=== PATIENT | male | born 1985 | race Caucasian/White ===

== ENCOUNTER 2018-10-09 19:49 | Emergency (ER) | payer SELFPAY ==
[2018-10-09] MEDS ORDERED: CEPHALEXIN 500 MG CAPSULE PO ONE (21:47)
[2018-10-09] MEDS ORDERED: SULFAMETHOXAZOLE/TRIMETHOPRIM 800-160 MG TABLET PO ONE (21:47)
--- NOTE | 2018-10-09 21:52 | ER Document Report ---
ED General - General Chief Complaint: Arm Pain Stated Complaint: ARM PAIN Time Seen by Provider: 10/09/18 20:06 Notes: Patient is a 33-year-old male with a past medical history of IV opiate abuse, no other chronic medical problems presents with 3 days of a area of swelling and redness over his left forearm. This is a site where the patient had injected 24 hours prior to the onset of the area becoming red and inflamed. Patient notes a throbbing, aching, constant pain to the area. Nothing seems to improve or worsen the pain. Patient states that he did try to cut the area with a razor blade to "relieve pressure" but only serous fluid was relieved. He was encouraged to come to the hospital tonight by his mother as the area was not improving. He denies fever or constitutional symptoms. He denies any history of similar symptoms in the past. Does not have a primary care physician. Last use of IV opiates was within the past 24 hours. TRAVEL OUTSIDE OF THE [place] IN LAST 30 DAYS: No - Related Data Allergies/Adverse Reactions: No Known Allergies Allergy (Unverified 10/09/18 19:51) Past Medical History - General Information source: Patient - Social History Smoking Status: Current Every Day Smoker Frequency of alcohol use: Occasional Drug Abuse: Heroin Lives with: Family Family History: Reviewed & Not Pertinent Review of Systems - Review of Systems Notes: Constitutional: Negative for fever. HENT: Negative for sore throat. Eyes: Negative for visual changes. Cardiovascular: Negative for chest pain. Respiratory: Negative for shortness of breath. Gastrointestinal: Negative for abdominal pain, vomiting or diarrhea. Genitourinary: Negative for dysuria. Musculoskeletal: Negative for back pain. Skin: Positive for rash. Neurological: Negative for headaches, weakness or numbness. 10 point ROS negative except as marked above and in HPI. Physical Exam - Vital signs Vitals: Temp Pulse Resp BP Pulse Ox 98.1 F 80 18 136/68 H 100 10/09/18 20:01 10/09/18 20:01 10/09/18 20:01 10/09/18 20:01 10/09/18 20:01 Interpretation: Normal Notes: PHYSICAL EXAMINATION: GENERAL: Well-appearing, well-nourished and in no acute distress. HEAD: Atraumatic, normocephalic. EYES: Pupils equal round and reactive to light, extraocular movements intact, sclera anicteric, conjunctiva are normal. ENT: nares patent, oropharynx clear without exudates. Moist mucous membranes. NECK: Normal range of motion, supple without lymphadenopathy LUNGS: Breath sounds clear to auscultation bilaterally and equal. No wheezes rales or rhonchi. HEART: Regular rate and rhythm without murmurs ABDOMEN: Soft, nontender, normoactive bowel sounds. No guarding, no rebound. No masses appreciated. EXTREMITIES: Normal range of motion, no pitting or edema. No cyanosis. NEUROLOGICAL: No focal neurological deficits. Moves all extremities spontaneously and on command. PSYCH: Normal mood, normal affect. SKIN: Warm, Dry, normal turgor, there is a noted area of swelling, mild induration although no fluctuance as well as erythema over the left forearm. Bedside ultrasound without evidence of fluid collection, cobblestoning noted. Course - Re-evaluation Re-evalutation: 10/09/18 21:52 Patient presents with symptoms most consistent with an acute cellulitis. Bedside ultrasound without any evidence of a deep space infection. Vitals within normal limits. Patient does not meet sepsis criteria is overall very well in appearance. Exam and history are not consistent with DVT. Patient will be started on coverage for both staph and strep. Patient is an IV drug user, we did have an extensive conversation regarding medical assisted therapy such as Suboxone. Patient declines initiation of this at this time stating he is not yet ready to quit. We did review safe needle practices and I did provide resources for outpatient therapy. At this time will discharge with return precautions and follow-up recommendations. Verbal discharge instructions given a the bedside and opportunity for questions given. Medication warnings reviewed. Patient is in agreement with this plan and has verbalized understanding of return precautions and the need for primary care follow-up in the next 24-72 hours. - Vital Signs Vital signs: Temp Pulse Resp BP Pulse Ox 97.5 F 82 18 131/72 H 100 10/09/18 21:58 10/09/18 21:58 10/09/18 21:58 10/09/18 21:58 10/09/18 21:58 Discharge - Discharge Clinical Impression: Staph skin infection, IV drug abuse Condition: Good Disposition: HOME, SELF-CARE Additional Instructions: The rash is likely due to infection of your skin. You need to take the antibiotics as prescribed. Do not stop even if the rash goes away until you have completed all the antibiotics. You should also return if you develop fevers with temperature greater than 101, worsening of the rash, persistent vomiting, worsening pain, or have any other symptoms that are concerning to you. I appreciate you giving me an opportunity to talk to today about opiate use. Please never use opiates of any kind. Over 200 people every day in the [place] from opiate overdoses. Do not become a statistic. You should urgently seek rehab and medical opiate therapy such as Suboxone. You can call 6-365-385-GGBG to find local resources. There is also resource sheet attached your paperwork today. Prescriptions: Cephalexin Monohydrate [Keflex 500 mg Capsule] 500 mg PO Q6H 7 Days capsule Sulfamethoxazole/Trimethoprim [Bactrim Ds Tablet] 1 tab PO BID #14 tablet
[2018-10-09 22:10] VITALS: BP 131/72
== END 2018-10-09 22:04 | disposition home or self-care (01) ==
LOC: ER 19:49
DX: L08.9 Local infection of the skin and subcutaneous tissue, unspecified (principal); B95.8 Unspecified staphylococcus as the cause of diseases classified elsewhere; F11.10 Opioid abuse, uncomplicated; F17.200 Nicotine dependence, unspecified, uncomplicated
CPT/HCPCS: 99283

== ENCOUNTER 2019-02-12 18:53 | Emergency (ER) | payer SELFPAY ==
[2019-02-12 18:58] VITALS: BP 134/63
[2019-02-12] MEDS ORDERED: MUPIROCIN 2% OINTMENT 22 GM TP ONE (19:25)
[2019-02-12] MEDS ORDERED: CEPHALEXIN 500 MG CAPSULE PO ONE (19:25)
[2019-02-12] MEDS ORDERED: SULFAMETHOXAZOLE/TRIMETHOPRIM 800-160 MG TABLET PO ONE (19:25)
--- NOTE | 2019-02-12 19:30 | ER Document Report ---
HPI - HPI Patient complains to provider of: Skin infection Time Seen by Provider: 02/12/19 19:05 Onset: Other - 3 days Onset/Duration: Persistent Quality of pain: Achy Pain Level: 2 Context: Patient states that he had a pimple to the right lower jawline area and squeezed it. Patient states that area larger and he has continued to squeeze stuff out today. No fever. Associated Symptoms: denies: Fever Exacerbated by: Denies Relieved by: Denies Similar symptoms previously: Yes Recently seen / treated by doctor: No - ROS ROS below otherwise negative: Yes Systems Reviewed and Negative: Yes All other systems reviewed and negative - CONSTITUTIONAL Constitutional: DENIES: Fever - GASTROINTESTINAL Gastrointestinal: DENIES: Nausea - MUSCULOSKELETAL Musculoskeletal: DENIES: Neck Pain - DERM Skin Color: Erythema Notes: Abscess to jawline Past Medical History - General Information source: Patient - Social History Smoking Status: Current Every Day Smoker Smoking Education Provided: Yes Frequency of alcohol use: None Drug Abuse: None Occupation: None Lives with: Family Family History: Reviewed & Not Pertinent Patient has suicidal ideation: No Patient has homicidal ideation: No - Medical History Medical History: Negative Renal/ Medical History: Denies: Hx Peritoneal Dialysis Surgical Hx: Negative Vertical Provider Document - CONSTITUTIONAL Agree With Documented VS: Yes Exam Limitations: No Limitations General Appearance: WD/WN, No Apparent Distress - INFECTION CONTROL TRAVEL OUTSIDE OF THE [place] IN LAST 30 DAYS: No - HEENT HEENT: Atraumatic, Normocephalic Notes: Patient with abscess within vincent along right lateral jawline. Patient with central scabbed lesion and surrounding induration, no fluctuance. Patient with surrounding erythema worrisome for cellulitis. No sublingual or submental swelling - NECK Neck: Normal Inspection, Supple. negative: Lymphadenopathy-Left, Lymphadenopathy-Right - RESPIRATORY Respiratory: Breath Sounds Normal, No Respiratory Distress - CARDIOVASCULAR Cardiovascular: Regular Rate, Regular Rhythm - MUSCULOSKELETAL/EXTREMETIES Musculoskeletal/Extremeties: MAEW - NEURO Level of Consciousness: Awake, Alert, Appropriate - DERM Integumentary: Warm, Dry, Abscess - Tender indurated area to right submandibular area with surrounding erythema, no fluctuance Course - Re-evaluation Re-evalutation: 02/12/19 19:[address] Knutson regarding patient presentation and exam findings. Agrees with plan to treat and have patient return tomorrow for wound recheck. 02/12/19 19:26 Discussed plan of care with patient as he does not have any area of fluctuance at this time. Patient denies any difficulty breathing or swallowing. Patient without any sublingual or submental swelling. No concern for Miguel angina at this time. No potential airway compromise. Patient reports squeezing purulent drainage out of wound earlier today. No additional collection of purulent drainage suspected at this time. Will treat symptomatically and encourage return visit tomorrow for recheck. Discussed worsening symptoms that patient should return immediately for including difficulty breathing, difficulty swallowing, swelling under his tongue or under his chin. - Vital Signs Vital signs: Temp Pulse Resp BP Pulse Ox 97.8 F 89 18 134/63 H 99 02/12/19 18:56 02/12/19 18:56 02/12/19 18:56 02/12/19 18:56 02/12/19 18:56 Discharge - Discharge Clinical Impression: Facial abscess Cellulitis Qualifiers: Site of cellulitis: face Qualified Code(s): L03.211 - Cellulitis of face Condition: Stable Disposition: HOME, SELF-CARE Instructions: Abscess ([facility]), Bactroban Ointment ([facility]), Cephalexin ([facility]), Trimethoprim-Sulfa ([facility]) Additional Instructions: Return immediately for any new or worsening symptoms Return tomorrow for repeat examination. Followup with your primary care provider, call tomorrow to make a followup appointment Do not pick at or squeeze at skin lesion on your face Apply warm compresses frequently to the area Apply Bactroban ointment 3 times a day for the next week. Prescriptions: Cephalexin Monohydrate [Keflex 500 mg Capsule] 500 mg PO Q6H 7 Days capsule Sulfamethoxazole/Trimethoprim [Bactrim Ds Tablet] 1 each PO BID #20 tablet Forms: Smoking Cessation Education Referrals: [facility] [Provider Group] - Follow up as needed
== END 2019-02-12 19:37 | disposition home or self-care (01) ==
LOC: ER 18:53
DX: L02.01 Cutaneous abscess of face (principal); L03.211 Cellulitis of face; F17.200 Nicotine dependence, unspecified, uncomplicated
CPT/HCPCS: 99283; J3490

== ENCOUNTER 2019-02-13 19:42 | Emergency (ER) | payer SELFPAY ==
--- NOTE | 2019-02-13 20:39 | ER Document Report ---
ED Medical Screen (RME) - General Chief Complaint: Abscess Recheck Stated Complaint: ABCESS Time Seen by Provider: 02/13/19 20:29 Mode of Arrival: Ambulatory Information source: Patient Notes: Patient presents to the emergency department for recheck of an abscess on the right side of his chin. Reports he was seen here last night prescribed antibiotics. He reports he is taken 1 dose. Reports the area is larger and creeping to the other side. No other complaints such as fever vomiting diarrhea. Reports he has had abscess one time before. Patient is talking in a clear voice opens his mouth wide no trismus I have greeted and performed a rapid initial assessment of this patient. A comprehensive ED assessment and evaluation of the patient, analysis of test results and completion of the medical decision making process will be conducted by additional ED providers. Dictation of this chart was performed using voice recognition software; therefore, there may be some unintended grammatical errors. TRAVEL OUTSIDE OF THE [place] IN LAST 30 DAYS: No - Related Data Allergies/Adverse Reactions: No Known Allergies Allergy (Verified 02/12/19 18:53) Past Medical History Renal/ Medical History: Denies: Hx Peritoneal Dialysis Physical Exam - Vital signs Vitals: Temp Pulse Resp BP Pulse Ox 98.8 F 89 16 142/69 H 99 02/13/19 19:50 02/13/19 19:50 02/13/19 19:50 02/13/19 19:50 02/13/19 19:50 Course - Vital Signs Vital signs: Temp Pulse Resp BP Pulse Ox 98.8 F 89 16 142/69 H 99 02/13/19 19:50 02/13/19 19:50 02/13/19 19:50 02/13/19 19:50 02/13/19 19:50
[2019-02-13 21:07] LABS: ABSOLUTE EOSINOPHILS # (AUTO) 0.3 10^3/uL (0.0-0.6); ABSOLUTE MONOCYTES (AUTO) 0.9 10^3/uL (0.1-1.4); ABSOLUTE NEUT (AUTO) 11.1 10^3/uL (1.7-8.2); BASOPHILS % (AUTO) 0.3 % (0-2); EOSINOPHILS % (AUTO) 1.8 % (0-6); HEMATOCRIT 35.9 % (37.9-51.0); LYMPHOCYTES % (AUTO) 13.9 % (13-45); MEAN CORPUSCULAR HEMOGLOBIN 28.5 pg (27.0-33.4); MEAN CORPUSCULAR HGB CONC 33.5 g/dL (32.0-36.0); MEAN CORPUSCULAR VOLUME 85 fl (80-97); MONOCYTES % (AUTO) 6.4 % (3-13); PLATELET COUNT 355 10^3/uL (150-450); RED BLOOD COUNT 4.23 10^6/uL (4.35-5.55); SEGMENTED NEUTROPHILS % (AUTO) 77.6 % (42-78); TOTAL CELLS COUNTED % (AUTO) 100 %; WHITE BLOOD COUNT 14.3 10^3/uL (4.0-10.5)
[2019-02-13 21:22] LABS: ALANINE AMINOTRANSFERASE 25 U/L (21-72); ALBUMIN 4.2 g/dL (3.5-5.0); ALKALINE PHOSPHATASE 98 U/L (38-126); ANION GAP 9 (5-19); ASPARTATE AMINO TRANSFERASE 29 U/L (17-59); BILIRUBIN,DIRECT 0.3 mg/dL (0.0-0.4); BILIRUBIN,TOTAL 0.5 mg/dL (0.2-1.3); BLOOD UREA NITROGEN 10 mg/dL (7-20); CALCIUM 9.3 mg/dL (8.4-10.2); CARBON DIOXIDE 31 mmol/L (22-30); CHLORIDE 99 mmol/L (98-107); GLUCOSE 100 mg/dL (75-110); POTASSIUM 4.1 mmol/L (3.6-5.0); SODIUM 138.6 mmol/L (137-145); TOTAL PROTEIN 7.8 g/dL (6.3-8.2)
[2019-02-13] MEDS ORDERED: NORMAL SALINE 1000 ML 1,000 ML IV ONE (21:50)
[2019-02-13 22:08] LABS: INTERNATIONAL RATION (INR) 0.96; PROTHROMBIN TIME 12.8 SEC (11.4-15.4)
[2019-02-13 22:09] LABS: PARTIAL THROMBOPLASTIN TIME 30.3 SEC (23.5-35.8)
--- NOTE | 2019-02-13 22:29 | RADIOLOGY REPORT (SQ) ---
EXAM DESCRIPTION: [facility]Lex: CT NECK CHEST WITH IV CONTRAST CLINICAL HISTORY: 33 years Male; abscess TECHNIQUE: CT soft tissue neck protocol with contrast All CT scans at this facility use dose modulation, iterative reconstruction, and/or weight based dosing when appropriate to reduce radiation dose to as low as reasonably achievable. COMPARISON: None. FINDINGS: There is diffuse subcutaneous edema in the right face, lateral abdomen inferior to the mandible. There is associated thickening of the platysma. Multiple enlarged level 1 lymph nodes measure up to 1.7 cm in diameter. No [place] necrosis. No focal fluid collection. Salivary glands are normal. Epiglottis is normal. Larynx is normal. No acute dental pathology. No acute bone findings. There is a slight levocurvature in the upper thoracic spine, which may be positional. No lytic bone changes. Paranasal sinuses and mastoid air cells are clear. IMPRESSION: 1. Right facial cellulitis with reactive submandibular adenopathy. 2. No abscess. 3. No focal lesions to explain the cellulitis.
[2019-02-13] MEDS ORDERED: VANCOMYCIN HCL INJ 1000 MG VIAL IV ONE (22:59)
[2019-02-13] MEDS ORDERED: PIPERACILLIN/TAZOBACTAM 3.375 GM VIAL IV ONE (22:59)
--- NOTE | 2019-02-13 23:04 | ER Document Report ---
ED General - General Chief Complaint: Abscess Recheck Stated Complaint: ABCESS Time Seen by Provider: 02/13/19 20:29 Primary Care Provider: WILMA BOOTH MD [ACTIVE STAFF] - Follow up as needed NAVI CHILEL MD [ACTIVE STAFF] - Follow up as needed Mode of Arrival: Ambulatory Information source: Patient TRAVEL OUTSIDE OF THE [place] IN LAST 30 DAYS: No - HPI Onset: Yesterday Onset/Duration: Sudden Quality of pain: Dull Severity: Mild Pain Level: 1 Associated symptoms: None Exacerbated by: Denies Relieved by: Denies Similar symptoms previously: No Recently seen / treated by doctor: No - Related Data Allergies/Adverse Reactions: No Known Allergies Allergy (Verified 02/12/19 18:53) Past Medical History - General Information source: Patient - Social History Smoking Status: Current Some Day Smoker Frequency of alcohol use: None Drug Abuse: Heroin Family History: Reviewed & Not Pertinent Patient has suicidal ideation: No Patient has homicidal ideation: No Renal/ Medical History: Denies: Hx Peritoneal Dialysis Review of Systems - Review of Systems Constitutional: No symptoms reported EENT: Other - Right facial swelling below the right mandible. Cardiovascular: No symptoms reported Respiratory: No symptoms reported Gastrointestinal: No symptoms reported Genitourinary: No symptoms reported Male Genitourinary: No symptoms reported Musculoskeletal: No symptoms reported Skin: No symptoms reported Hematologic/Lymphatic: No symptoms reported Neurological/Psychological: No symptoms reported -: Yes All other systems reviewed and negative Physical Exam - Vital signs Vitals: Temp Pulse Resp BP Pulse Ox 98.8 F 89 16 142/69 H 99 02/13/19 19:50 02/13/19 19:50 02/13/19 19:50 02/13/19 19:50 02/13/19 19:50 Interpretation: Normal - General General appearance: Appears well, Alert - HEENT Head: Normocephalic, Atraumatic Eyes: Normal Pupils: PERRL Notes: There is induration and redness with swelling below the right mandible consistent with cellulitis. There is no fluctuance to suggest an abscess. - Respiratory Respiratory status: No respiratory distress Chest status: Nontender Breath sounds: Normal Chest palpation: Normal - Cardiovascular Rhythm: Regular Heart sounds: Normal auscultation Murmur: No - Abdominal Inspection: Normal Distension: No distension Bowel sounds: Normal Tenderness: Nontender Organomegaly: No organomegaly - Back Back: Normal, Nontender - Extremities General upper extremity: Normal inspection, Nontender, Normal color, Normal ROM, Normal temperature General lower extremity: Normal inspection, Nontender, Normal color, Normal ROM, Normal temperature, Normal weight bearing. No: Roberta's sign - Neurological Neuro grossly intact: Yes Cognition: Normal Orientation: AAOx4 [place] Coma Scale Eye Opening: Spontaneous [place] Coma Scale Verbal: Oriented [place] Coma Scale Motor: Obeys Commands [place] Coma Scale Total: 15 Speech: Normal Motor strength normal: LUE, RUE, LLE, RLE Sensory: Normal - Psychological Associated symptoms: Normal affect, Normal mood - Skin Skin Temperature: Warm Skin Moisture: Dry Skin Color: Normal Course - Vital Signs Vital signs: Temp Pulse Resp BP Pulse Ox 98.4 F 73 20 136/83 H 100 02/14/19 01:46 02/14/19 01:46 02/14/19 01:46 02/14/19 01:46 02/14/19 01:46 - Laboratory Result Diagrams: 02/13/19 20:48 02/13/19 20:48 Laboratory results interpreted by me: 02/13/19 02/13/19 20:48 20:48 WBC 14.3 H RBC 4.23 L Hgb 12.0 L Hct 35.9 L Absolute Neutrophils 11.1 H Carbon Dioxide 31 H - Diagnostic Test Radiology reviewed: Reports reviewed Discharge - Discharge Clinical Impression: Facial cellulitis Condition: Stable Disposition: HOME, SELF-CARE Instructions: MRSA Cellulitis ([facility]) Additional Instructions: Please follow-up with your doctor on Thursday morning. Take your antibiotics as prescribed. Return to the emergency room if your condition worsens. Prescriptions: Clindamycin HCl [Cleocin 300 mg Capsule] 300 mg PO TID #30 capsule Ibuprofen [Motrin 600 mg Tablet] 600 mg PO Q8H PRN #20 tablet PRN Reason: Pain Scale Of 3 Ondansetron [Zofran Odt 4 mg Tablet] 1 tab PO Q4H PRN #15 tab.rapdis PRN Reason: For Nausea/Vomiting Referrals: NAVI CHILEL MD [ACTIVE STAFF] - Follow up as needed WILMA BOOTH MD [ACTIVE STAFF] - Follow up as needed
[2019-02-14 01:47] VITALS: BP 136/83
== END 2019-02-14 01:47 | disposition home or self-care (01) ==
LOC: ER 19:42
DX: L03.211 Cellulitis of face (principal); F11.10 Opioid abuse, uncomplicated; F17.200 Nicotine dependence, unspecified, uncomplicated
CPT/HCPCS: 36415; 85025; 85610; 85730; 80053; 70491; J7030; J3370; J2543

== ENCOUNTER 2019-02-27 16:50 | Emergency (ER) | payer SELFPAY ==
[2019-02-27] MEDS ORDERED: NORMAL SALINE 1000 ML 1,000 ML IV ONE (18:06)
[2019-02-27 18:19] LABS: ALANINE AMINOTRANSFERASE 23 U/L (21-72); ALKALINE PHOSPHATASE 147 U/L (38-126); ANION GAP 9 (5-19); ASPARTATE AMINO TRANSFERASE 22 U/L (17-59); BILIRUBIN,DIRECT 0.3 mg/dL (0.0-0.4); BILIRUBIN,TOTAL 0.6 mg/dL (0.2-1.3); BLOOD UREA NITROGEN 15 mg/dL (7-20); CALCIUM 8.2 mg/dL (8.4-10.2); CARBON DIOXIDE 25 mmol/L (22-30); CHLORIDE 98 mmol/L (98-107); CREATINE KINASE 52 U/L (55-170); GLUCOSE 84 mg/dL (75-110); POTASSIUM 3.4 mmol/L (3.6-5.0); SODIUM 131.7 mmol/L (137-145); TOTAL PROTEIN 5.6 g/dL (6.3-8.2)
[2019-02-27 18:31] LABS: CREATINE KINASE MB 0.62 ng/mL (<4.55); HEMATOCRIT 30.4 % (37.9-51.0); HEMOGLOBIN 10.3 g/dL (13.5-17.0); MEAN CORPUSCULAR HEMOGLOBIN 28.4 pg (27.0-33.4); MEAN CORPUSCULAR VOLUME 84 fl (80-97); PLATELET COUNT 234 10^3/uL (150-450); RED BLOOD COUNT 3.63 10^6/uL (4.35-5.55); RED CELL DISTRIBUTION WIDTH 13.7 % (11.5-14.0); WHITE BLOOD COUNT 11.5 10^3/uL (4.0-10.5)
[2019-02-27 18:32] LABS: TROPONIN I < 0.012 ng/mL
[2019-02-27 18:58] LABS: BASOPHILS % (MANUAL) 0 % (0-2); EOSINOPHILS % (MANUAL) 0 % (0-6); LYMPHOCYTES % (MANUAL) 9 % (13-45); MONOCYTES % (MANUAL) 0 % (3-13); PLATELET COMMENT ADEQUATE; RBC MORPHOLOGY COMMENT NORMO-CYTIC/CHROMIC; SEGMENTED NEUTROPHILS % (MAN) 91 % (42-78); TOTAL CELLS COUNTED 100
[2019-02-27 19:09] LABS: APPEARANCE,URINE CLEAR; BILIRUBIN,URINE NEGATIVE (NEGATIVE); COLOR,URINE YELLOW; GLUCOSE, URINE NEGATIVE (NEGATIVE); KETONES,URINE NEGATIVE (NEGATIVE); LEUKOCYTE ESTERASE,URINE NEGATIVE (NEGATIVE); NITRITE,URINE NEGATIVE (NEGATIVE); PROTEIN,URINE NEGATIVE (NEGATIVE); URINE SPECIFIC GRAVITY 1.006
[2019-02-27 19:26] VITALS: BP 104/45
--- NOTE | 2019-02-27 20:00 | RADIOLOGY REPORT (SQ) ---
EXAM DESCRIPTION: MRI LUMBAR SPINE WITHOUT; MRI THORACIC SPINE WITHOUT; MRI CERVICAL SPINE WITHOUT COMPLETED DATE/TIME: 02/27/2019 7:27 pm; 02/27/2019 7:51 pm; 02/27/2019 7:50 pm REASON FOR STUDY: right leg weakness, IVDA; RT LEG WEAKNESS IVDA; RTLEG WEAKNESS IVDA COMPARISON: CT cervical spine, 02/13/2019 TECHNIQUE: Multisequence multiplanar imaging of the cervical, thoracic, and lumbar spine was perform ed, including sagittal total spine STIR imaging at the request of the ordering physician. LIMITATIONS: None. FINDINGS: SEGMENTATION: No transitional anatomy. The lowest well-developed disc space is labeled L5- S1. ALIGNMENT: Anatomic. VERTEBRAE: Intact. BONE MARROW: Normal. No marrow replacement or reactive changes. DISC SIGNAL: Focal disc degenerative disease and small posterior cervical disc bulge at C6-C7 with re versal of the normal cervical lordosis, seen in sagittal STIR only. Disc spaces are otherwise normal without evidence of significant disc degenerative disease, disc edema, or abnormality. POSTERIOR ELEMENTS: Generally intact. No pars defect evident. HARDWARE: None in the spine. CORD AND CONUS: Normal in size and signal intensity. Conus at the appropriate level. SOFT TISSUES: No significant abnormality. OTHER: No other significant findings. IMPRESSION: 1. No noncontrast MR abnormality of the lumbar spine. No significant disc or neural fo raminal pathology. No evidence of epidural abscess or other abnormality. No evidence of discitis os teomyelitis. 2. Focal disc degenerative disease and small posterior cervical disc bulge at at C6-C7 with reversal of the normal cervical lordosis, seen in sagittal STIR imaging only, findings as seen on prior CT [place] 02/13/2019. 3. No evidence of discitis osteomyelitis or epidural abscess of the cervical or thoracic spine, imag ed in sagittal STIR only. TECHNICAL DOCUMENTATION: JOB ID: [id number] [employer]- All Rights Reserved Reading location - IP/workstation name: [email or web address]
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
== END 2019-02-27 21:41 | disposition home or self-care (01) ==
LOC: ER 16:50
DX: R53.1 Weakness (principal); R61 Generalized hyperhidrosis; R20.2 Paresthesia of skin; F11.20 Opioid dependence, uncomplicated; F14.10 Cocaine abuse, uncomplicated; F15.10 Other stimulant abuse, uncomplicated; F17.210 Nicotine dependence, cigarettes, uncomplicated; R68.83 Chills (without fever); M50.323 Other cervical disc degeneration at C6-C7 level; M50.823 Other cervical disc disorders at C6-C7 level; D72.829 Elevated white blood cell count, unspecified; D64.9 Anemia, unspecified
CPT/HCPCS: 99284; 36415; 87040; 82553; 82550; 85025; 87077; 80053; 81001; 84484; 83605; 72141; 72146; 72148; J7030; 87186

== ENCOUNTER 2019-03-04 11:49 | Emergency (ER) | payer SELFPAY ==
--- NOTE | 2019-03-04 12:29 | ER Document Report ---
ED Medical Screen (RME) - General Chief Complaint: Abnormal Lab Results Stated Complaint: RESULTS Time Seen by Provider: 03/04/19 12:20 Notes: Patient is a [age]-year-old male presents to the emergency department for positive blood cultures. Patient states the hospital called him and told him he needs to come back to the emergency department for reevaluation. Patient was at the facility at 02/27/2019. Was having numbness in his right lower extremity. Patient does admit to past IV drug abuse. Blood cultures did grow back called Klebsiella, susceptible to ciprofloxacin. Discussed this case with my attending Dr. Jones who suggests initial dose of ciprofloxacin in the emergency department with repeat blood cultures. Patient states last evening he had a fever 101.6. Patient's denying any other complaints. States he has no further numbness or tingling in his right lower extremity. GENERAL: Alert, interacts well. No acute distress. EXTREMITIES: Moves all 4 extremities spontaneously. No edema, normal radial and dorsalis pedis pulses bilaterally. No cyanosis. I have greeted and performed a rapid initial assessment of this patient. A comprehensive ED assessment and evaluation of the patient, analysis of test results and completion of the medical decision making process will be conducted by additional ED providers. I have specifically instructed the patient or family members with the patient to immediately return to any nursing staff should anything change in the patient's condition or with their chief complaint. This medical record was dictated with voice recognizing software. There may be grammatical, syntax errors that are unintended. TRAVEL OUTSIDE OF THE [place] IN LAST 30 DAYS: No - Related Data Allergies/Adverse Reactions: No Known Allergies Allergy (Verified 02/12/19 18:53) Past Medical History Renal/ Medical History: Denies: Hx Peritoneal Dialysis Physical Exam - Vital signs Vitals: Temp Pulse Resp BP Pulse Ox 97.8 F 96 14 131/60 H 100 03/04/19 12:21 03/04/19 12:21 03/04/19 12:21 03/04/19 12:21 03/04/19 12:21 Course - Vital Signs Vital signs: Temp Pulse Resp BP Pulse Ox 97.8 F 96 14 131/60 H 100 03/04/19 12:21 03/04/19 12:21 03/04/19 12:21 03/04/19 12:21 03/04/19 12:21
[2019-03-04] MEDS ORDERED: CIPROFLOXACIN 400 MG/D5W RTU 400 MG/200 ML RTUPB IV SCH (12:30)
[2019-03-04 13:23] LABS: ABSOLUTE EOSINOPHILS # (AUTO) 0.2 10^3/uL (0.0-0.6); ABSOLUTE LYMPHOCYTES (AUTO) 1.8 10^3/uL (0.5-4.7); ABSOLUTE MONOCYTES (AUTO) 0.6 10^3/uL (0.1-1.4); BASOPHILS % (AUTO) 0.5 % (0-2); EOSINOPHILS % (AUTO) 2.7 % (0-6); HEMATOCRIT 38.5 % (37.9-51.0); HEMOGLOBIN 13.1 g/dL (13.5-17.0); LYMPHOCYTES % (AUTO) 24.1 % (13-45); MEAN CORPUSCULAR HEMOGLOBIN 29.2 pg (27.0-33.4); MEAN CORPUSCULAR HGB CONC 34.1 g/dL (32.0-36.0); MEAN CORPUSCULAR VOLUME 86 fl (80-97); MONOCYTES % (AUTO) 7.4 % (3-13); PLATELET COUNT 327 10^3/uL (150-450); RED CELL DISTRIBUTION WIDTH 14.5 % (11.5-14.0); SEGMENTED NEUTROPHILS % (AUTO) 65.3 % (42-78); TOTAL CELLS COUNTED % (AUTO) 100 %; WHITE BLOOD COUNT 7.6 10^3/uL (4.0-10.5)
[2019-03-04 13:40] LABS: ALANINE AMINOTRANSFERASE 17 U/L (21-72); ALBUMIN 4.1 g/dL (3.5-5.0); ALKALINE PHOSPHATASE 86 U/L (38-126); ANION GAP 9 (5-19); ASPARTATE AMINO TRANSFERASE 22 U/L (17-59); BILIRUBIN,DIRECT 0.3 mg/dL (0.0-0.4); BILIRUBIN,TOTAL 0.4 mg/dL (0.2-1.3); BLOOD UREA NITROGEN 12 mg/dL (7-20); CALCIUM 9.1 mg/dL (8.4-10.2); CARBON DIOXIDE 31 mmol/L (22-30); CHLORIDE 101 mmol/L (98-107); GLUCOSE 98 mg/dL (75-110); POTASSIUM 4.2 mmol/L (3.6-5.0); TOTAL PROTEIN 7.7 g/dL (6.3-8.2)
[2019-03-04 13:49] LABS: URINE AMPHETAMINES SCREEN NEGATIVE; URINE BARBITURATES SCREEN NEGATIVE; URINE BENZODIAZEPINES SCREEN NEGATIVE; URINE COCAINE SCREEN UNCONFIRMED POSITIVE; URINE MARIJUANA (THC) SCREEN NEGATIVE; URINE METHADONE SCREEN NEGATIVE; URINE PHENCYCLIDINE SCREEN NEGATIVE
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
[2019-03-04 16:21] VITALS: BP 134/65
== END 2019-03-04 16:19 | disposition home or self-care (01) ==
LOC: ER 11:49
DX: B96.1 Klebsiella pneumoniae [K. pneumoniae] as the cause of diseases classified elsewhere (principal); F17.200 Nicotine dependence, unspecified, uncomplicated
CPT/HCPCS: 99283; 96365; 36415; 87040; 85025; 80053; 80307; J0744

== ENCOUNTER 2019-04-25 00:41 | Emergency (ER) | payer SELFPAY ==
[2019-04-25 00:51] VITALS: BP 130/73
[2019-04-25 01:26] LABS: BILIRUBIN,URINE NEGATIVE (NEGATIVE); COLOR,URINE YELLOW; GLUCOSE, URINE NEGATIVE (NEGATIVE); KETONES,URINE NEGATIVE (NEGATIVE); LEUKOCYTE ESTERASE,URINE NEGATIVE (NEGATIVE); NITRITE,URINE NEGATIVE (NEGATIVE); PROTEIN,URINE 30 mg/dL (NEGATIVE); UROBILINOGEN,URINE NEGATIVE mg/dL (<2.0)
[2019-04-25 01:37] LABS: APPEARANCE,URINE CLEAR
[2019-04-25 01:38] LABS: URINE SPECIFIC GRAVITY 1.032
--- NOTE | 2019-04-25 01:42 | ER Document Report ---
HPI - HPI Patient complains to provider of: Exposure to bacterial vaginosis Time Seen by Provider: 04/25/19 01:09 Pain Level: Denies Context: Patient is an otherwise healthy 33-year-old male presents to the emergency department for treatment for bacterial vaginosis. Patient voices that his girlfriend was told she had bacterial vaginosis and that he should also be tested and treated. Patient denies any penile discharge, itching, rash. Pat ient denies any dysuria. Past Medical History - General Information source: Patient - Social History Smoking Status: Unknown if Ever Smoked Family History: Reviewed & Not Pertinent Renal/ Medical History: Denies: Hx Peritoneal Dialysis Vertical Provider Document - CONSTITUTIONAL Agree With Documented VS: Yes Notes: GENERAL: Alert, interacts well. No acute distress. HEAD: Normocephalic, atraumatic. EYES: Pupils equal, round, and reactive to light. Extraocular movements intact. ENT: Oral mucosa moist, tongue midline. NECK: Full range of motion. Supple. Trachea midline. LUNGS: Clear to auscultation bilaterally, no wheezes, rales, or rhonchi. No respiratory distress. HEART: Regular rate and rhythm. No murmur ABDOMEN: Soft, non-tender. Non-distended. Bowel sounds present in all 4 quadrants. EXTREMITIES: Moves all 4 extremities spontaneously. NEUROLOGICAL: Alert and oriented x3. Normal speech. cranial nerves II through XII grossly intact PSYCH: Normal affect, normal mood. SKIN: Warm, dry, normal turgor. No rashes or lesions noted. Genitalia: Patient refused. - INFECTION CONTROL TRAVEL OUTSIDE OF THE [place] IN LAST 30 DAYS: No Course - Re-evaluation Re-evalutation: I discussed with patient at bedside bacterial vaginosis is an overgrowth of bacteria in the vagina. He does not need to be tested or treated for it. I have also discussed with patient testing and treating for gonorrhea and chlamydia as this is potentially what his girlfriend meant when she told him he needed to be tested and treated. Patient is a very upset and states over and over again "she only had bacterial vaginosis." Patient is denying any dysuria, penile discharge, rash. He is refusing a genitalia exam. Patient is refusing testing or treatment for gonorrhea, chlamydia. Patient wishes for discharge. - Vital Signs Vital signs: Temp Pulse Resp BP Pulse Ox 97.5 F 98 17 130/73 H 100 04/25/19 00:46 04/25/19 00:46 04/25/19 00:46 04/25/19 00:46 04/25/19 00:46 Discharge - Discharge Clinical Impression: Feared complaint without diagnosis Condition: Stable Disposition: HOME, SELF-CARE Additional Instructions: As we discussed you have been seen and treated in the emergency department for your concerns of exposure to bacterial vaginosis. Bacterial vaginosis is an overgrowth of the vaginal nate. It is impossible for you to contract this disease. Please make sure you follow-up with your primary care provider should he have any current complaints.
== END 2019-04-25 02:02 | disposition home or self-care (01) ==
LOC: ER 00:41
DX: Z71.1 Person with feared health complaint in whom no diagnosis is made (principal)
CPT/HCPCS: 81001; 99283

== ENCOUNTER 2019-07-25 13:35 | Emergency (ER) | payer SELFPAY | END 2019-07-25 18:01 | disposition left against medical advice (07) | LOC: ER 13:35 | DX: Z53.21 Procedure and treatment not carried out due to patient leaving prior to being seen by health care provider (principal) ==

== ENCOUNTER 2020-03-26 00:04 | Emergency (ER) | payer SELFPAY ==
[2020-03-26] MEDS ORDERED: CEFTRIAXONE 1 GM/D5W RTU 1 GM/50 ML RTUPB IV ONE (00:56)
[2020-03-26] MEDS ORDERED: RINGERS LACTATED IV ONE (00:56)
[2020-03-26] MEDS ORDERED: ACETAMINOPHEN 325 MG TABLET PO ONE (00:57)
--- NOTE | 2020-03-26 01:00 | ER Document Report ---
ED Medical Screen (RME) - General Stated Complaint: INJURY TO RIGHT ARM/POSSIBLE INFECTION Time Seen by Provider: 03/26/20 00:53 Mode of Arrival: Ambulatory Notes: HPI; 34-year-old male presents emergency room complaining of redness and swellin g to his right arm that started Thursday morning around 3 AM. Patient states he woke up with the pain. Thinks he may have been bitten by something. Patient does admit to the use of heroin states he last used 2 hours ago. Denies injecting into the area with the swelling is. Patient is right-handed. No other medications for symptoms. PE: Alert and oriented x3. Moderate distress noted. Lungs were clear to auscultation without rales, rhonchi, wheezes. Heart tachycardic without murmurs, rubs, gallops. Right forearm with erythema extending from the mid upper arm to the right middle forearm. There is an area of erythema with a possible wound to the right lateral elbow. It is warm and tender to palpation. There is a positive right radial pulse. I have greeted and performed a rapid initial assessment of this patient. A comprehensive ED assessment and evaluation of the patient, analysis of test results and completion of the medical decision making process will be conducted by additional ED providers. I have specifically instructed the patient or family members with the patient to immediately return to any nursing staff should anything change in the patient's condition or with their chief complaint. TRAVEL OUTSIDE OF THE [place] IN LAST 30 DAYS: No - Related Data Allergies/Adverse Reactions: No Known Allergies Allergy (Verified 02/12/19 18:53) Past Medical History Renal/ Medical History: Denies: Hx Peritoneal Dialysis Physical Exam - Vital signs Vitals: Temp Pulse Resp BP Pulse Ox 100.9 F H 132 H 22 H 107/79 94 03/26/20 00:46 03/26/20 00:46 03/26/20 00:46 03/26/20 00:46 03/26/20 00:46 Course - Vital Signs Vital signs: Temp Pulse Resp BP Pulse Ox 100.9 F H 132 H 22 H 107/79 94 03/26/20 00:46 03/26/20 00:46 03/26/20 00:46 03/26/20 00:46 03/26/20 00:46
[2020-03-26 01:46] LABS: ABSOLUTE EOSINOPHILS # (AUTO) 0.1 10^3/uL (0.0-0.6); ABSOLUTE LYMPHOCYTES (AUTO) 2.8 10^3/uL (0.5-4.7); ABSOLUTE MONOCYTES (AUTO) 1.2 10^3/uL (0.1-1.4); ABSOLUTE NEUT (AUTO) 10.9 10^3/uL (1.7-8.2); BASOPHILS % (AUTO) 0.3 % (0-2); EOSINOPHILS % (AUTO) 0.9 % (0-6); HEMATOCRIT 35.9 % (37.9-51.0); HEMOGLOBIN 12.1 g/dL (13.5-17.0); LYMPHOCYTES % (AUTO) 18.4 % (13-45); MEAN CORPUSCULAR HEMOGLOBIN 29.1 pg (27.0-33.4); MEAN CORPUSCULAR HGB CONC 33.6 g/dL (32.0-36.0); MEAN CORPUSCULAR VOLUME 87 fl (80-97); MONOCYTES % (AUTO) 7.9 % (3-13); PLATELET COUNT 341 10^3/uL (150-450); RED BLOOD COUNT 4.14 10^6/uL (4.35-5.55); RED CELL DISTRIBUTION WIDTH 14.8 % (11.5-14.0); SEGMENTED NEUTROPHILS % (AUTO) 72.5 % (42-78); TOTAL CELLS COUNTED % (AUTO) 100 %
[2020-03-26 02:05] LABS: ALBUMIN 3.9 g/dL (3.5-5.0); ALKALINE PHOSPHATASE 102 U/L (38-126); ANION GAP 7 (5-19); ASPARTATE AMINO TRANSFERASE 125 U/L (17-59); BILIRUBIN,TOTAL 0.6 mg/dL (0.2-1.3); BLOOD UREA NITROGEN 12 mg/dL (7-20); CALCIUM 9.1 mg/dL (8.4-10.2); CARBON DIOXIDE 30 mmol/L (22-30); CHLORIDE 101 mmol/L (98-107); GLUCOSE 104 mg/dL (75-110); POTASSIUM 4.3 mmol/L (3.6-5.0); TOTAL PROTEIN 7.4 g/dL (6.3-8.2)
[2020-03-26 02:10] LABS: INTERNATIONAL RATION (INR) 0.95; PROTHROMBIN TIME 12.9 SEC (11.4-15.4)
[2020-03-26] MEDS ORDERED: CLINDAMYCIN 900 MG/D5W RTU 900 MG/50 ML RTUPB IV ONE (02:17)
--- NOTE | 2020-03-26 02:31 | ER Document Report ---
ED Skin Rash/Insect Bite/Abscs - General Chief Complaint: Abscess Stated Complaint: INJURY TO RIGHT ARM/POSSIBLE INFECTION Time Seen by Provider: 03/26/20 00:53 Mode of Arrival: Ambulatory Notes: CHIEF COMPLAINT: Right arm redness HPI: 34-year-old male who is a poor historian presenting for right arm redness with fever today. Patient states he picked at a pimple on the elbow and now has redness and pain to the arm. Patient is a heroin user last injected heroin approximately 3 to 4 hours ago. States that the area where he developed the infection has not area he normally injects. ROS: See HPI - all other systems were reviewed and are otherwise negative Constitutional: + fever Eyes: no drainage, no blurred vision ENT: no runny nose, no sore throat Cardiovascular: no chest pain Resp: no SOB, no cough GI: no vomiting, no diarrhea, no abdominal pain : no dysuria Integumentary: + rash Allergy: no hives Musculoskeletal: + extremity pain or swelling Neurological: no numbness/tingling, no weakness MEDICATIONS: I agree with the patient medications as charted by the RN. ALLERGIES: I agree with the allergies as charted by the RN. PAST MEDICAL HISTORY/PAST SURGICAL HISTORY: Reviewed and agree as charted by RN. SOCIAL HISTORY: Reviewed and agree as charted by RN. FAMILY HISTORY: No significant familial comorbid conditions directly related to patient complaint EXAM: Reviewed vital signs as charted by RN. CONSTITUTIONAL: Alert and oriented and responds appropriately to questions. Disheveled-appearing; well-nourished HEAD: Normocephalic; atraumatic EYES: PERRL; Conjunctivae clear, sclerae non-icteric ENT: normal nose; no rhinorrhea; moist mucous membranes; pharynx without lesions noted, no uvula edema or deviation, no tonsillar hypertrophy, phonation normal NECK: Supple without meningismus; non-tender; no cervical lymphadenopathy, no masses CARD: Tachycardic; no murmurs, no clicks, no rubs, no gallops; symmetric distal pulses RESP: Normal chest excursion without splinting or tachypnea; breath sounds clear and equal bilaterally; no wheezes, no rhonchi, no rales, pulse oximetry 98% on room air not hypoxic ABD/GI: Normal bowel sounds; non-distended; soft, non-tender, no rebound, no guarding; no palpable organomegaly or masses. BACK: The back appears normal and is non-tender to palpation, there is no CVA tenderness EXT: Normal ROM in all joints; there is erythema with a small scabbed area on the dorsal and lateral aspect of the right elbow. Erythema extends approximately 16 cm x 8 cm across the lateral aspect of the elbow and olecranon region, to the mid forearm on the dorsal and lateral aspect and then on the underside of the right arm with some extension and lymphadenitis up to the axilla SKIN: Normal color for age and race; warm; dry; good turgor; multiple scabs are noted to the face and skin NEURO: Moves all extremities equally; Motor and sensory function intact PSYCH: The patient's mood and manner are appropriate. Grooming and personal hygiene are appropriate. MDM: 34-year-old male who is answering questions appropriately at this time presenting for a cellulitis of the right arm. I am concerned about the infection he is febrile and tachycardic here I did recommend admission for treatment of the cellulitis which patient is declining at this time. He is alert and oriented x3, he is fidgeting in the room. Patient does appear to be in his right mind to make this decision. We discussed the risks of signing out AGAINST MEDICAL ADVICE which would include loss of limb or function, sepsis or . His initial lab work ordered by triage process shows a leukocytosis but a normal lactic acid. Patient was initially ordered Rocephin in the triage proc ess I will add clindamycin for MRSA coverage given his injection use. discussed with attending. TRAVEL OUTSIDE OF THE [place] IN LAST 30 DAYS: No - Related Data Allergies/Adverse Reactions: No Known Allergies Allergy (Verified 02/12/19 18:53) Past Medical History - Social History Smoking Status: Current Every Day Smoker Chew tobacco use (# tins/day): No Frequency of alcohol use: Rare Drug Abuse: Heroin, Methamphetamine Family History: Reviewed & Not Pertinent Patient has homicidal ideation: No Renal/ Medical History: Denies: Hx Peritoneal Dialysis Physical Exam - Vital signs Vitals: Temp Pulse Resp BP Pulse Ox 100.9 F H 132 H 22 H 107/79 94 03/26/20 00:46 03/26/20 00:46 03/26/20 00:46 03/26/20 00:46 03/26/20 00:46 Course - Vital Signs Vital signs: Temp Pulse Resp BP Pulse Ox 100.9 F H 132 H 22 H 107/79 98 03/26/20 00:46 03/26/20 00:46 03/26/20 00:46 03/26/20 00:46 03/26/20 01:40 - Laboratory Result Diagrams: 03/26/20 01:24 03/26/20 01:24 Laboratory results interpreted by me: 03/26/20 03/26/20 01:24 01:24 WBC 15.0 H RBC 4.14 L Hgb 12.1 L Hct 35.9 L RDW 14.8 H Absolute Neuts (auto) 10.9 H AST 125 H ALT 232 H Discharge - Discharge Clinical Impression: Cellulitis of arm, right, Heroin abuse Condition: Fair Disposition: AGAINST MEDICAL ADVICE Additional Instructions: You have a serious infection of the right arm. You have declined admission for this tonight. Make sure that you fill and take the antibiotics to treat the infection. If you have worsening fevers or worsening redness or swelling of the arm please return for reevaluation of your symptoms. Prescriptions: Clindamycin HCl [Cleocin 150 mg Capsule] 450 mg PO TID #63 capsule
[2020-03-26 03:47] VITALS: BP 125/61
== END 2020-03-26 03:46 | disposition left against medical advice (07) ==
LOC: ER 00:04
DX: L03.113 Cellulitis of right upper limb (principal); R50.9 Fever, unspecified; R00.0 Tachycardia, unspecified; F11.10 Opioid abuse, uncomplicated; F15.10 Other stimulant abuse, uncomplicated; F17.200 Nicotine dependence, unspecified, uncomplicated; Z53.20 Procedure and treatment not carried out because of patient's decision for unspecified reasons
CPT/HCPCS: 99284; 96375; 96365; 36415; 87040; 83605; 85025; 85610; 80053; 84484; J3490; J7120; J0696

== ENCOUNTER 2020-05-12 15:41 | Emergency (ER) | payer SELFPAY ==
[2020-05-12] MEDS ORDERED: CEPHALEXIN 500 MG CAPSULE PO ONE (17:32)
[2020-05-12] MEDS ORDERED: MUPIROCIN 2% OINTMENT 22 GM TP ONE (17:32)
--- NOTE | 2020-05-12 17:38 | ER Document Report ---
ED Skin Rash/Insect Bite/Abscs - General Chief Complaint: Skin Sore(s) Stated Complaint: SKIN SORES, CHEST AND NOSE Time Seen by Provider: 05/12/20 17:32 Primary Care Provider: ÓSCAR HAILE MD [ACTIVE STAFF] - Follow up tomorrow Mode of Arrival: Ambulatory Information source: Patient Notes: 34-year-old male presented to ED for draining lesions to the left nare left face one on his chest and one on each arms. He states they have been there for several days. He denies using any kind of inhaled narcotics or illicit drugs. He does have part of the tip of his nose due to the lesion to the nare. The lesion to the nose actually looked like any she make injury to the nose causing the ulceration. Did not note any powder in his nose at this time. All of the w ounds are weeping. Did consult Dr. Jones concerning the appearance of these lesions and the loss of tissue of the nose. She also asked about inhaled Coke or mass or any other type of drugs and he stated that he does not inhale any kind of drugs. He states he does smoke a pack a day does not drink does occasionally use opiates and meth but does not inhale anything. Patient was prescribed Bactroban to be applied to all the wounds including the nose and Keflex. He was instructed to please return to the ED for any increase in symptoms and please follow-up with ENT on Thursday and schedule follow-up appointment as soon as possible patient was able to verbalize understanding and agreement with this treatment plan and he was discharged home.. TRAVEL OUTSIDE OF THE [place] IN LAST 30 DAYS: No - HPI Patient complains to provider of: Skin rash/lesion Onset: Other - Progressing over the last week Onset/Duration: Gradual, Worse Quality of pain: No pain Severity: None Pain Level: Denies Skin Character: Lesion - Left face left nare and both antecubitals Quality of rash: Other - Pollack at times Exacerbated by: Denies Relieved by: Denies Similar symptoms previously: No Recently seen / treated by doctor: No - Related Data Allergies/Adverse Reactions: No Known Allergies Allergy (Verified 02/12/19 18:53) Past Medical History - General Information source: Patient - Social History Smoking Status: Current Every Day Smoker Cigarette use (# per day): Yes - Per day Frequency of alcohol use: None Drug Abuse: Methamphetamine, Prescription drugs - Opiates Family History: Reviewed & Not Pertinent - Past Medical History Cardiac Medical History: Reports: None Pulmonary Medical History: Reports: None EENT Medical History: Reports: None Neurological Medical History: Reports: None Endocrine Medical History: Reports: None Renal/ Medical History: Reports: None Malignancy Medical History: Reports None GI Medical History: Reports: None Musculoskeletal Medical History: Reports None Skin Medical History: Reports None Psychiatric Medical History: Reports: None Traumatic Medical History: Reports: None Infectious Medical History: Reports: None Surgical Hx: Negative Past Surgical History: Reports: None - Immunizations Immunizations up to date: Yes Review of Systems - Review of Systems Constitutional: No symptoms reported EENT: No symptoms reported Cardiovascular: No symptoms reported Respiratory: No symptoms reported Gastrointestinal: No symptoms reported Genitourinary: No symptoms reported Male Genitourinary: No symptoms reported Musculoskeletal: No symptoms reported Skin: Lesions - To left forehead left nare both antecubitals Hematologic/Lymphatic: No symptoms reported Neurological/Psychological: No symptoms reported -: Yes All other systems reviewed and negative Physical Exam - Vital signs Vitals: Temp Pulse Resp BP Pulse Ox 98.5 F 96 16 104/82 97 05/12/20 16:13 05/12/20 16:13 05/12/20 16:13 05/12/20 16:13 05/12/20 16:13 Interpretation: Normal - General General appearance: Appears well, Alert - HEENT Head: Normocephalic, Atraumatic Eyes: Normal Pupils: PERRL - Respiratory Respiratory status: No respiratory distress Chest status: Nontender Breath sounds: Normal Chest palpation: Normal - Cardiovascular Rhythm: Regular Heart sounds: Normal auscultation Murmur: No - Abdominal Inspection: Normal Distension: No distension Bowel sounds: Normal Tenderness: Nontender Organomegaly: No organomegaly - Back Back: Normal, Nontender - Extremities General upper extremity: Normal inspection, Nontender, Normal color, Normal ROM, Normal temperature General lower extremity: Normal inspection, Nontender, Normal color, Normal ROM, Normal temperature, Normal weight bearing. No: Roberta's sign - Neurological Neuro grossly intact: Yes Cognition: Normal Orientation: AAOx4 Eleonora Coma Scale Eye Opening: Spontaneous [place] Coma Scale Verbal: Oriented [place]ora Coma Scale Motor: Obeys Commands [place] Coma Scale Total: 15 Speech: Normal Motor strength normal: LUE, RUE, LLE, RLE Sensory: Normal - Psychological Associated symptoms: Normal affect, Normal mood - Skin Skin Temperature: Warm Skin Moisture: Dry Skin Color: Normal Skin irregularity: Lesion Location of irregularity: Other - Left forehead, left nare, both antecubitals Irregularity with: Tenderness, Crusting, Other - Yellow crusty drainage Course - Vital Signs Vital signs: Temp Pulse Resp BP Pulse Ox 98.1 F 95 18 129/70 H 100 05/12/20 17:41 05/12/20 17:41 05/12/20 17:41 05/12/20 17:41 05/12/20 17:41 Discharge - Discharge Clinical Impression: Skin sores left nare, skin sores both arms antecubital, sore left side of face, skin sore on chest Condition: Stable Disposition: HOME, SELF-CARE Additional Instructions: Impetigo You have a skin infection called impetigo. This infection is caused by germs growing between the skin layers. It spreads easily and is quite c ontagious. The usual treatment is with oral antibiotics, along with washing the sores and application of an antibiotic ointment. There's a new prescription antibiotic ointment which may allow some cases of impetigo to be treated without pills. Healing takes about a week. All involved areas should recover with no scarring. If there is significant worsening, or if new symptoms (such as dark urine, fever, chills, or red streaks) arise, call the doctor or return for re- examination. Bactroban Ointment Bactroban is very effective against the germs that cause infection within the skin. It's useful for impetigo and other superficial infections. Deeper infections require antibiotics by mouth or by shot. Apply the medicine three times a day for one week, or longer if your doctor has advised it. Stop the medicine and call your doctor if you develop large blisters, severe itching, increasing pain, swelling, fever, or spreading redness. Cephalexin The antibiotic you've been prescribed is a member of the cephalosporin class. This type of antibiotic covers a wide variety of infections, including those of the skin, lungs, and urinary tract. It's useful for staph infections. This antibiotic is slightly similar to the penicillin family. In rare cases, a person who is allergic to penicillin will also be allergic to this medication. If you have had a severe allergic reaction to penicillin, and have not taken this antibiotic since that time, notify your doctor. Antibiotics which cover many germs ("broad spectrum" antibiotics) are more likely to cause diarrhea or "yeast" infections. Women prone to vaginal yeast problems may suffer an attack after taking this antibiotic. In infants, oral thrush (white spots "stuck" on the cheek) or yeast diaper rash may result. See your doctor if these problems occur. Call at once if you develop itching, hives, shortness of breath, or lightheadedness. Please do not place anything up your nose. Your at risk for decreased blood flow to the nose which causes larger deformity than what is there now. It is extremely poor that you follow-up with ears nose and throat surgeon. I have giv en you prescriptions for Bactroban and Keflex which you need to take until all gone. Please clean the sores well with some mild soap and then apply the Bactroban and take the Keflex as prescribed. These follow-up immediately if any of these sores do not heal or get any worse. FOLLOW-UP CARE: If you have been referred to a physician for follow-up care, call the physicians office for an appointment as you were instructed or within the next two days. If you experience worsening or a significant change in your symptoms, notify the physician immediately or return to the Emergency Department at any time for re-evaluation. Prescriptions: Mupirocin [Bactroban 2% Ointment 22 gm] 1 applic TP TID #1 tube Cephalexin Monohydrate [Keflex 500 mg Capsule] 500 mg PO Q6H 5 Days #20 capsule Forms: Elevated Blood Pressure, Smoking Cessation Education Referrals: ÓSCAR HAILE MD [ACTIVE STAFF] - Follow up tomorrow
[2020-05-12 17:42] VITALS: BP 129/70
== END 2020-05-12 17:55 | disposition home or self-care (01) ==
LOC: ER 15:41
DX: L98.9 Disorder of the skin and subcutaneous tissue, unspecified (principal); F17.210 Nicotine dependence, cigarettes, uncomplicated
CPT/HCPCS: 99283; J3490